=== PATIENT | male | born 1945 | race African-American/Black ===

== ENCOUNTER → 2016-05-16 | Day surgery (SDC) | payer OTHER ==
[2016-05-16] VITALS (8 sets, daily range): BP systolic 133–145; BP diastolic 78–89
[~2016-05-16] VITALS: Ht 180.3 cm; Wt 89.4 kg
[~2016-05-16] MED LIST: ALLOPURINOL100 M1 PO; AMLODIPINE BESY10 MG PO; Akten 3.5% 1ml Btl ONE; BSS 15ml BTL ONE; BSS 500ml btl ONE; Carbachol 0.01% Op Soln 1.5ml vial ONE; Dexamethasone 4mg/ml vial ONE; Diclofenac Sod 0.1% Op Soln ONE; EPINEPHrine 1mg/1ml Amp ONE; FINASTERIDE5 MG PO; Gatifloxacin Opth Solution 0.5% ONE; HYDROCHLOROTHIA25 MG PO; LIPITOR40 MG ORAL; LR 1000ml 1,000 ML IVLG SCH; LR 1000ml ONE; Lidocaine 1% MPF 10mg/ml 5ml ONE; METOPROLOL TAR100 M1 PO; Midazolam 2mg/2ml Inj ONE; NAPROXEN500 M2 PO; NITROSTAT0.4 M1 SL; NS Irrig 1000ml ONE; OMEGA 3 PO; Phenylephrine 2.5% Op Soln ONE; Povidone-Iodine 5% opth solution ONE; SIMVASTATIN20 MG PO; Sodium Hyaluronate 14 mg/ml 0.85ml ONE; Sterile Water Irrig 1000ml IRRIG ONE; Tobradex Opth Susp 2.5ml ONE; Tropicamide 1% Opth Soln ONE; VIT B PO
[2016-05-16] MEDS: Diclofenac Sod 0.1% Op Soln LEFT EYE SCH ×3 (06:51→07:14)
[2016-05-16] MEDS: Akten 3.5% 1ml Btl LEFT EYE SCH ×3 (06:51→07:14)
[2016-05-16] MEDS: Gatifloxacin Opth Solution 0.5% LEFT EYE SCH ×3 (06:52→07:14)
[2016-05-16] MEDS: Tropicamide 1% Opth Soln LEFT EYE SCH ×3 (06:52→07:14)
[2016-05-16] MEDS: Tobradex Opth Susp 2.5ml LEFT EYE SCH ×3 (06:52→07:14)
[2016-05-16] MEDS: Phenylephrine 2.5% Op Soln LEFT EYE SCH ×3 (06:52→07:14)
--- NOTE | 2016-05-16 07:07 | Pre-Procedure Note/Attestation ---
Pre-Procedure Note/Attestation Complete Prior to Procedure Planned Procedure: left Procedure Narrative: cataract extraction with implant left eye Indications for Procedure Pre-Operative Diagnosis: cataract left eye Attestation I attest that I discussed the nature of the procedure; its benefits; risks and complications; and alternatives (and the risks and benefits of such alternatives ), prior to the procedure, with the patient (or the patient's legal business representative). I attest that, if there was a reasonable possibility of needing a blood transfusion, the patient (or the patient's legal business representative) was given the [facility] standardized written summary, pursuant to the Rufino Susan Blood Safety Act ([place] Health and Safety Code # 1645, as amended). I attest that I re-evaluated the patient just prior to the surgery and that there has been no change in the patient's H&P, except as documented below: NICHO CASTELLON May 16, 2016 07:07
--- NOTE | 2016-05-16 08:06 | Anethesia Preoperative Eval ---
Anesthesia Pre-op PMH/ROS General Date of Evaluation: May 16, 2016 Time of Evaluation: 07:52 Anesthesiologist: Aly ASA Score: ASA 2 Mallampati Score Class I : Soft palate, uvula, fauces, pillars visible Class II: Soft palate, uvula, fauces visible Class III: Soft palate, base of uvula visible Class IV: Only hard plate visible Mallampati Classification: Class II Surgeon: Logan Diagnosis: cataract left eye Surgical Procedure: cataract extraction left eye with IOL placement Anesthesia History: none Family History: no anesthesia problems Allergies: Coded Allergies: CEPHALEXIN (Unverified Allergy, Unknown, 09/29/13) Medications: see eMAR Past Medical History Cardiovascular: Reports: HTN Pulmonary: Denies: COPD, ILSA, asthma, other Gastrointestinal/Genitourinary: Denies: CRI, ESRD, GERD, other Neurologic/Psychiatric: Denies: CVA, TIA, dementia, depression/anxiety, other Endocrine: Denies: DM, hypothyroidism, other, steroids HEENT: Reports: cataract (L) Hematology/Immune: Denies: DVT, anemia, bleeding disorder, other PMH Narrative: HTN, cataract left eye PSxH Narrative: cataract right eye Anesthesia Pre-op Phys. Exam Physician Exam Last Vital Signs Date Time Temp Pulse Resp B/P Pulse Ox O2 Delivery O2 Flow Rate FiO2 05/16/16 06:55 97.7 77 20 143/85 96 Room Air Constitutional: NAD Neurologic: CN 2-12 intact Cardiovascular: RRR Respiratory: CTA Gastrointestinal: S/NT/ND Airway Exam Mallampati Score: Class II MO: full ROM: full Teeth: intact Dentures: no lower, no upper ENDY REED D.O. May 16, 2016 08:06
--- NOTE | 2016-05-16 08:22 | 48 Hour Post Anesthesia Eval ---
Post Anesthesia Evaluation Procedure: cataract extraction left eye with IOL placement Date of Evaluation: May 16, 2016 Time of Evaluation: 08:21 Blood Pressure Systolic: 145 0: 89 Pulse Rate: 73 Respiratory Rate: 18 Temperature (Fahrenheit): 98.2 O2 Sat by Pulse Oximetry: 100 Airway: patent Nausea: No Vomiting: No Pain Intensity: 0 Hydration Status: adequate Cardiopulmonary Status: stable Mental Status/LOC: patient returned to baseline Follow-up Care/Observations: as per surgeon Post-Anesthesia Complications: none Follow-up care needed: N/A ENDY REED D.O. May 16, 2016 08:22
--- NOTE | 2016-05-16 08:23 | Brief Operative Note ---
Immediate Post Operative Note Operative Note Pre-op Diagnosis: cataract left eye Procedure: phacoemulsification of cataract with implant left eye Post-op Diagnosis: same as pre-op Surgeon: jack pimentel Animal Nurse: none Anesthesiologist: don black Anesthesia: MAC Specimen: none Complications: none Condition: stable Estimated Blood Loss: none Drains: none Implant(s) used?: Yes JACK PIMENTEL May 16, 2016 08:23
--- NOTE | 2016-05-16 08:23 | Immediate Post-Op Evaluation ---
Immediate Post-Op Evalulation Immediate Post-Op Evalulation Procedure: cataract extraction left eye with IOL placement Date of Evaluation: May 16, 2016 Time of Evaluation: 08:22 IV Fluids: 200ml Blood Products: none Estimated Blood Loss: none Urinary Output: due to void Blood Pressure Systolic: 139 Blood Pressure Diastolic: 88 Pulse Rate: 73 Respiratory Rate: 16 O2 Sat by Pulse Oximetry: 100 Temperature (Fahrenheit): 98.2 Pain Score (1-10): 0 Nausea: No Vomiting: No Complications none Patient Status: awake, reacts Hydration Status: adequate Drug: n/a ENDY REED D.O. May 16, 2016 08:23
--- NOTE | 2016-05-16 09:39 | Operative Note - Dictated ---
DATE OF OPERATION: 05/16/2016 PREOPERATIVE DIAGNOSIS: Cataract, left eye. POSTOPERATIVE DIAGNOSIS: Cataract, left eye. PROCEDURE: Phacoemulsification cataract left eye with placement of posterior chamber intraocular lens. SURGEON: Lino Ford M.D. CREATIVE MANAGER: None. ANESTHESIA: MAC/topical. ANESTHESIOLOGIST: Dr. Almas Lu. INDICATION FOR PROCEDURE: Poor vision, left eye. DESCRIPTION OF FINDINGS: Nuclear sclerotic and cortical cataract, left eye. DESCRIPTION OF PROCEDURE: The patient received a topical anesthetic block consisting of 3.5% Akten eye drops. The eye was then prepped and draped in usual manner. A lid speculum was placed. An operating Zeiss microscope was positioned. A temporal corneal groove was made with the dimitri blade. A SuperSharp blade made a stab incision at the 6 o'clock position. A 0.1 mL of 1% nonpreserved intracameral lidocaine was injected. Healon was instilled into the anterior chamber and a 2.5/2.8 mm trapezoidal dimitri blade was used to complete the temporal corneal wound. A cystotome was used to create an anterior capsular flap. Utrata forceps were used to complete the capsulorrhexis. BSS on a cannula was used to hydrodissect the nucleus. The lens nucleus was phacoemulsified in a phaco-fracture technique. Remaining cortical material was removed with the I/A and the posterior capsule polished with the I/A on Cap vac. Healon was reinstilled into the capsular bag and anterior chamber, and an Zavala foldable one-piece posterior chamber intraocular lens model ZCB00, power 20.5 diopter, serial #[id number] was placed in the injector. The lens was put in the capsular bag. The I/A tip was used to remove the Healon and position the lens. The wound edge was hydrated with BSS and a blunt-tipped cannula. The wound was checked and found to be watertight. The lid speculum was removed and a drop of TobraDex and Zymaxid was placed. A clear plastic shield was taped over the eye. The patient tolerated the procedure well and left the operating room in good condition. Lino Ford M.D. ([facility] [place]) DR: Concepcion JOB#: [id number] CC: [id number]
== END | disposition home or self-care (01) ==
LOC: SDS 06:07
DX: H25.12 Age-related nuclear cataract, left eye (principal); H25.012 Cortical age-related cataract, left eye; E11.9 Type 2 diabetes mellitus without complications; I12.9 Hypertensive chronic kidney disease with stage 1 through stage 4 chronic kidney disease, or unspecified chronic kidney disease; N18.3 Chronic kidney disease, stage 3 (moderate); I25.10 Atherosclerotic heart disease of native coronary artery without angina pectoris; M51.16 Intervertebral disc disorders with radiculopathy, lumbar region; N52.9 Male erectile dysfunction, unspecified; K21.9 Gastro-esophageal reflux disease without esophagitis; M10.9 Gout, unspecified; Z88.1 Allergy status to other antibiotic agents
CPT/HCPCS: 66984; 82962; J0171; J1100; J2250; J7120; V2632; 94003; 94150